=== PATIENT | female | born 1975 | race Asian ===

== ENCOUNTER → 2020-01-14 09:30 | Outpatient (CLI) | payer OTHER, SELFPAY ==
[2020-01-14 11:46] LABS: COVID19 -Nasal RAPID Negative (Negative)
== END ==
PROVIDERS: Visit Provider Physician Assistant
DX: Z11.59 Encounter for screening for other viral diseases (principal)
CPT/HCPCS: 87635

== ENCOUNTER 2020-01-16 08:56 | Day surgery (SDC) | payer OTHER, SELFPAY ==
[2020-01-16] VITALS (8 sets, daily range): BP systolic 102–136; BP diastolic 60–85; PULSE 60–80; RESP 12–20; TEMP 36.3–36.6; O2SAT 96–100; BMI 19.8
--- NOTE | 2020-01-16 | PATH_ITS ---
[facility] Accession Number: [id number] . 01 Material submitted: . PART A: small bowel - SMALL BOWEL PART B: gastrointestinal site - GASTRIC . 01 Clinical history: . SDC A: RULE OUT CELIAC SPRUE B: RULE OUT H.PYLORI . 02 Diagnosis: A. Small Bowel, Biopsy: Duodenal mucosa with no diagnostic abnormality. Negative for active inflammation, features of sprue, dysplasia, or malignancy. . B. Stomach, Biopsies: Gastric antral mucosa with mild chronic inflammation. Negative for Helicobacter organisms by immunohistochemistry. Negative for intestinal metaplasia. Negative for dysplasia or malignancy. MRV 01/22/2020 1334 Local . 02 Electronically signed: . Ramana Nielsen MD, PhD, Pathologist NPI- [id number] . 01 Gross description: . Part A: SMALL BOWEL: Received in formalin are 2 fragment(s) of nation, soft tissue measuring 0.4 x 0.3 x 0.2 cm to 0.3 x 0.3 x 0.2 cm submitted entirely in 1 cassette(s) Part B: GASTRIC: Received in formalin are 3 fragment(s) of nation, soft tissue measuring 0.3 x 0.3 x 0.1 cm to 0.3 x 0.2 x 0.1 cm submitted entirely in 1 cassette(s) /QBJ 01/17/2020 0442 Local . 02 Microscopic: . B) An immunohistochemical stain was performed to evaluate for Helicobacter organisms and is negative. The control stain showed appropriate reactivity. . * This test was developed and its performance characteristics determined by [employer]. It has not been cleared or approved by the [place]. Food and Drug Administration. The FDA has determined that such clearance or approval is not necessary. This test is used for clinical purposes. It should not be regarded as investigational or for research. . 02 Pathologist provided ICD-10: K30, K29.70 . 02 CPT . 415007, 827735, [id number] Performed at: 01 [facility] [address] [place] [address], [place], [place] [id number] MD Yuriy Coleman MD Phone: [phone] Performed at: 02 [facility] [address] [place], [place] [id number] MD Priscilla Portillo MD Phone: [phone]
[2020-01-16] MEDS: SODIUM CHLORIDE 0.9% 1,000 ML 70 ML IV (09:19)
--- NOTE | 2020-01-16 09:31 | PM.HP.1 ---
History of Present Illness History of Present Illness Date Patient Seen: 01/16/20 Time Patient Seen: 09:31 Chief complaint: SDC Narrative: Patient is a very pleasant 44-year-old female who presented for upper endoscopy. She was last seen on January 03, 2020. She denies any changes in her symptoms or medical history since that time. She has continued to have symptoms of dyspepsia. Meds Home Medications and Allergies Home Medications Medication Instructions Recorded Confirmed Type multivitamin 1 tab PO DAILY 01/16/20 01/16/20 History Allergies Allergy/AdvReac Type Severity Reaction Status Date / Time No Known Drug Allergies Allergy Verified 01/16/20 09:15 Review of Systems Review of Systems ROS: Yes All systems reviewed with the patient and are negative except as otherwise documented Exam Const General: cooperative, healthy appearing, comfortable, well developed and well groomed Nutritional Appearance: thin Orientation: alert, awake and oriented x3 HENMT Head: normocephalic and atraumatic Resp Effort & Inspection: normal respiratory effort, able to speak in complete sentences and normal respiratory pattern Auscultation: clear to auscultation bilaterally Cardio Rate: regular rate Rhythm: regular rhythm Heart Sounds: S1 normal and S2 normal GI Palpation: soft and No tender Extrem Right lower extremity: no edema Left lower extremity: no edema Assessment & Plan Assessment & Plan narrative: 1. Dyspepsia -EGD today, further recommendations to follow
[2020-01-16] MEDS: LIDOCAINE 4% SOLN 50 ML 20 ML TOP (09:38)
[2020-01-16] MEDS: MIDAZOLAM 5 MG/5 ML VIAL IV (09:39)
[2020-01-16] MEDS: fentaNYL 250 MCG/5 ML INJ IV (09:40)
--- NOTE | 2020-01-16 09:49 | PM.OP.ENDO ---
Operative Date/Time/Diagnoses Date of procedure: 01/16/20 Time of procedure: 09:40 Procedure Notes Procedure in detail: Surgeon: Juju Slaughter DO Procedure: Esophagogastroduodenoscopy with biopsy Preoperative diagnosis: 1. Dyspepsia Postoperative diagnosis: 1. Normal appearing esophagus 2. Mild antral gastritis, biopsied 3. Small hiatal hernia 4. Normal-appearing small bowel, rule out celiac sprue Medications: Conscious sedation using 3 mg IV of Midazolam and 75 mcg IV of Fentanyl, 4% lidocaine gargle Preanesthesia Assessment An H and P was performed/updated and the Px?s ASA class is 1. The procedure was discussed in detail with the patient. The potential risks and complications including infection, bleeding, missed lesions, perforation, need for surgery in case of perforation, prolonged hospital stay, and were explained. A brief question and answer period was allotted and once all questions were answered, informed consent was obtained. The patient was brought back to the procedure room and placed on standard monitoring. The patient?s vital signs were monitored continuously throughout the entire procedure. Prior to starting, a timeout was performed to confirm the patient?s identity, allergies, medications, and procedure. Procedure in detail The patient was placed in left lateral decubitus position and a bite block was inserted. The tip of the upper endoscope was placed into the mouth and advanced without difficulty under direct visualization into the esophagus. Esophagus: Normal-appearing esophagus Stomach: Mild antral gastritis, biopsied to rule out H pylori Small hiatal hernia Duodenum: Normal-appearing small bowel mucosa, biopsied to rule out celiac sprue The patient tolerated the procedure well and will be brought back to the recovery area to be discharged once criteria are met. The total physician intraservice time was 7 min. Complications There were no complications and estimated blood loss was minimal. Recommendations: Resume previous diet Continue outPx medications Follow up pathology results Office follow to be scheduled An emergency contact number was given to the patient for any complications related to the procedure
== END 2020-01-16 10:45 | disposition home or self-care (01) ==
PROVIDERS: Referring Provider Student in an Organized Health Care Education/Training Program; Visit Provider Student in an Organized Health Care Education/Training Program
PROC: 0DJ08ZZ Inspection of Upper Intestinal Tract, Via Natural or Artificial Opening Endoscopic (ICD-10-PCS; CPT 43235; principal; 2020-01-16 10:00)
DX: K29.50 Unspecified chronic gastritis without bleeding (principal); K44.9 Diaphragmatic hernia without obstruction or gangrene
CPT/HCPCS: 43239; 81025; J2250; J3010

== ENCOUNTER 2023-04-13 07:52 | Day surgery (SDC) | payer OTHER, SELFPAY ==
[2023-04-13 08:30] VITALS: BP 132/91; PULSE 93; RESP 16; TEMP 36.6; O2SAT 2; BMI 18.8
[2023-04-13] MEDS: LACTATED RINGERS 1,000 ML 84 ML IV (08:42)
--- NOTE | 2023-04-13 09:05 | PM.HP.1 ---
History of Present Illness History of Present Illness Date Patient Seen: 04/13/23 Chief complaint: SDC Narrative: Screening PFSH Social History household members: spouse, family and children Smoking Status: Never smoker alcohol intake: current Meds Home Medications and Allergies Home Medications Medication Instructions Recorded Confirmed Type multivitamin 1 tab PO DAILY 01/16/20 01/16/20 History amitriptyline 50 mg tablet 50 mg PO ONCE PM 04/12/23 04/13/23 History tolterodine 2 mg capsule,extended 2 mg PO DAILY 04/12/23 04/13/23 History release 24 hr Allergies Allergy/AdvReac Type Severity Reaction Status Date / Time No Known Drug Allergies Allergy Verified 04/13/23 08:29 Exam Vital Signs (past 8 hours): - 04/13/23 08:30 Temperature 97.8 F Pulse Rate 93 H Respiratory Rate 16 Blood Pressure 132/91 H Pulse Oximetry 2 L Oxygen Delivery Method Room Air Oxygen Flow Rate 100 Oxygen Delivery Method Room Air Oxygen Flow Rate 100 Narrative Exam Narrative: Oropharynx free of lesions Chest clear to auscultation percussion Cardiac exam reveals no S3 or murmur Assessment & Plan Assessment & Plan narrative: Need for colorectal cancer screening. Risks, benefits, alternatives have been explained.
--- NOTE | 2023-04-13 09:07 | P.OP.COLON_ITS ---
Operative Date/Time/Diagnoses Date of procedure: 04/13/23 Pre-op diagnosis: See indication and findings Procedure & Clinicians Study performed: Colonoscopy Indications: Screening Surgeon: Stephan Johnson Procedure Notes Procedure in detail: After informed consent was obtained the patient was placed in left lateral d ecubitus position. The video colonoscope was introduced the rectum slowly advanced cecum. On slow withdrawal mucosa was carefully examined. Preparation was good. The scope was removed. The patient tolerated procedure well. Blood loss none Complications none Sedation mac Findings 1. Normal colonoscopy to cecum Patient should have follow-up colonoscopy 10 years
[2023-04-13 09:42] VITALS: BP 122/86; PULSE 74; RESP 20; TEMP 37.2; O2SAT 100
[2023-04-13 09:48] VITALS: BP 127/82; PULSE 71; RESP 16; TEMP 37.2; O2SAT 100
[2023-04-13 09:53] VITALS: BP 133/93; PULSE 67; RESP 17; TEMP 37.1; O2SAT 97
[2023-04-13 10:00] VITALS: BP 129/79; PULSE 71; RESP 18; O2SAT 98
== END 2023-04-13 10:18 | disposition home or self-care (01) ==
PROVIDERS: Referring Provider Internal Medicine Gastroenterology; Visit Provider Internal Medicine Gastroenterology
PROC: 0DJD8ZZ Inspection of Lower Intestinal Tract, Via Natural or Artificial Opening Endoscopic (ICD-10-PCS; CPT 45378; principal; 2023-04-13 09:30)
DX: Z12.11 Encounter for screening for malignant neoplasm of colon (principal)
CPT/HCPCS: 45378; J2704